=== PATIENT | male | born 1990 | race African-American/Black ===

== ENCOUNTER 2016-10-14 19:41 | Emergency (ER) | payer OTHER ==
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
[2016-10-14] MEDS ORDERED: NO MEDICATIONS (19:42)
== END 2016-10-14 21:02 | disposition home or self-care (01) ==
LOC: SED 19:41
DX: S39.012A Strain of muscle, fascia and tendon of lower back, initial encounter (principal); F17.210 Nicotine dependence, cigarettes, uncomplicated; V49.40XA Driver injured in collision with unspecified motor vehicles in traffic accident, initial encounter; Y92.488 Other paved roadways as the place of occurrence of the external cause
CPT/HCPCS: 72100; 96372; 99283; J1885